=== PATIENT | male | born 1975 | race Native Hawaiian/Other Pacific Islander ===

== ENCOUNTER 2016-11-05 11:18 | Emergency (ER) | payer BC ==
[~2016-11-05] VITALS: Ht 182.9 cm; Wt 165.6 kg
[~2016-11-05 11:18] MED LIST: ASPIRIN81 M1 OR; BENA20TA2 PO; GLYB5TAB65 PO; LEXAPRO20 MG OR; LIPITOR40 MG PO; METF500T PO
[2016-11-05 14:21] VITALS: BP 154/88; TEMP 98.7
== END 2016-11-05 14:21 | disposition home or self-care (01) ==
LOC: ED 11:18
DX: S80.12XA Contusion of left lower leg, initial encounter (principal); W20.8XXA Other cause of strike by thrown, projected or falling object, initial encounter; Y92.098 Other place in other non-institutional residence as the place of occurrence of the external cause
CPT/HCPCS: 96372; 99283; J1885

== ENCOUNTER 2017-12-15 12:40 | Observation (INO) | payer BC ==
[~2017-12-15] VITALS: Ht 182.9 cm; Wt 156.5 kg
[2017-12-15 12:53] VITALS: BP 158/93; TEMP 97.9
[2017-12-15] MEDS ORDERED: ALLO100T22 PO (13:14)
[2017-12-15] MEDS ORDERED: VICTOZA18 MG/3 ML PO (13:14)
[2017-12-15 13:22] LABS: POTASSIUM 3.8 mmol/L (3.6-5.2)
[2017-12-15 13:24] LABS: PLATELET COUNT 288 K/uL (142-355)
[2017-12-15 16:13] VITALS: BP 125/75; TEMP 98.3; Ht 182.9 cm; Wt 156.5 kg
[2017-12-15 20:00] VITALS: BP 137/71; TEMP 98.3
[2017-12-16] VITALS: BP 150/98; TEMP 97.9
[2017-12-16 04:00] VITALS: BP 117/76; TEMP 97.7
[2017-12-16 08:00] VITALS: BP 130/80; TEMP 98
[2017-12-16 12:00] VITALS: BP 115/72; TEMP 97.9
== END 2017-12-16 14:00 | disposition home or self-care (01) ==
LOC: ED 12:40 → MED/SURG 14:00
DX: R07.89 Other chest pain (principal); I10 Essential (primary) hypertension; E78.4 Other hyperlipidemia; E11.9 Type 2 diabetes mellitus without complications; R55 Syncope and collapse; K21.9 Gastro-esophageal reflux disease without esophagitis
CPT/HCPCS: 36415; 80053; 82550; 82948; 84484; 85027; 85610; 85730; 86318; 93005; 96372; 99220; 99284; G0378; J1650

== ENCOUNTER 2018-01-25 08:56 | Observation (INO) | payer BC ==
[~2018-01-25] VITALS: Ht 182.9 cm; Wt 153.8 kg
[~2018-01-25 08:56] MED LIST changes: +ALLO100T22 PO; +VICTOZA18 MG/3 ML PO
[2018-01-25 09:31] VITALS: BP 132/85; TEMP 98; Ht 182.9 cm; Wt 153.8 kg
[2018-01-25 09:46] LABS: PLATELET COUNT 273 K/uL (142-355)
[2018-01-25 09:55] LABS: PARTIAL THROMBOPLASTIN TIME 26.1 SECONDS (24.5-33.6)
[2018-01-25 09:59] LABS: POTASSIUM 4.4 mmol/L (3.6-5.2); SODIUM 132 mmol/L (136-145)
[2018-01-25] MEDS ORDERED: CITALOPRAM40 MG PO (10:20)
[2018-01-25] MEDS ORDERED: LIPITOR40 MG PO (10:20)
[2018-01-25] MEDS ORDERED: SITA50TA2 PO (10:21)
[2018-01-25] MEDS ORDERED: ZANTAC 75 PO (10:21)
[2018-01-25] MEDS ORDERED: POTASSIUM99 MG PO (10:22)
[2018-01-25] MEDS ORDERED: IRON27 MG PO (10:22)
[2018-01-25 12:00] VITALS: BP 132/85; TEMP 98.3
[2018-01-25 16:00] VITALS: BP 134/80; TEMP 97.9
[2018-01-25 20:00] VITALS: BP 134/84; TEMP 98.3
[2018-01-26] VITALS: BP 102/58; TEMP 97.9
[2018-01-26 04:00] VITALS: BP 144/85; TEMP 98.1
[2018-01-26 06:29] LABS: PLATELET COUNT 180 K/uL (142-355)
[2018-01-26 06:51] LABS: POTASSIUM 3.2 mmol/L (3.6-5.2)
[2018-01-26 08:00] VITALS: BP 138/78; TEMP 97.7
[2018-01-26 12:00] VITALS: BP 116/63; TEMP 97.6
[2018-01-26 16:00] VITALS: BP 131/69; TEMP 97.9
[2018-01-26 20:00] VITALS: BP 140/76; TEMP 98.7
[2018-01-27] VITALS: BP 113/61; TEMP 98.3
[2018-01-27 04:00] VITALS: BP 131/71; TEMP 98.6
[2018-01-27 06:17] LABS: PLATELET COUNT 187 K/uL (142-355)
[2018-01-27 06:33] LABS: POTASSIUM 3.9 mmol/L (3.6-5.2)
[2018-01-27 08:00] VITALS: BP 137/76; TEMP 97.8
[2018-01-27 12:03] VITALS: BP 139/78; TEMP 98
[2018-01-27 16:00] VITALS: BP 111/65; TEMP 98
[2018-01-27 20:00] VITALS: BP 108/71; TEMP 98.7
[2018-01-28] VITALS: BP 108/69; TEMP 98.8
[2018-01-28 03:59] VITALS: BP 110/75; TEMP 98.9
[2018-01-28 06:57] LABS: PLATELET COUNT 102 K/uL (142-355)
[2018-01-28 08:22] VITALS: BP 118/69; TEMP 97.7
[2018-01-28 12:09] VITALS: BP 116/78; TEMP 98.1
== END 2018-01-28 15:10 | disposition home or self-care (01) ==
LOC: MED/SURG 08:56
PROVIDERS: ADMIT Family Medicine
DX: E11.65 Type 2 diabetes mellitus with hyperglycemia (principal); Z79.4 Long term (current) use of insulin; R06.02 Shortness of breath; R07.89 Other chest pain
CPT/HCPCS: 36591; 36600; 80053; 81000; 82550; 82805; 82948; 83036; 83735; 83880; 84484; 85027; 85610; 85730; 93005; 94760; 96372; 99220; G0378; G0379; J1650; J1815

== ENCOUNTER 2018-12-31 08:32 | Outpatient (CLI) | payer BC ==
[~2018-12-31 08:32] MED LIST changes: +CITALOPRAM40 MG PO; +IRON27 MG PO; +POTASSIUM99 MG PO; +SITA50TA2 PO; +ZANTAC 75 PO
== END 2018-12-31 22:45 | disposition home or self-care (01) ==
LOC: RAD 08:32
DX: R06.2 Wheezing (principal)

== ENCOUNTER 2020-01-27 08:14 | Outpatient (CLI) | payer BC ==
[2020-01-27 09:10] LABS: POTASSIUM 4.1 mmol/L (3.6-5.2)
[2020-01-27 10:00] LABS: PLATELET COUNT 257 K/uL (142-355)
== END 2020-01-27 19:13 | disposition home or self-care (01) ==
LOC: US 08:14
PROVIDERS: Internal Medicine
DX: I12.9 Hypertensive chronic kidney disease with stage 1 through stage 4 chronic kidney disease, or unspecified chronic kidney disease (principal); N18.3 Chronic kidney disease, stage 3 (moderate); E11.22 Type 2 diabetes mellitus with diabetic chronic kidney disease
CPT/HCPCS: 36415; 80053; 81000; 82024; 82088; 82306; 82330; 82533; 82570; 83036; 83735; 83835; 83970; 84100; 84155; 84244; 84436; 84443; 85027

== ENCOUNTER → 2020-04-21 | Outpatient (CLI) | payer BC ==
[2020-04-21 13:00] LABS: PLATELET COUNT 277 K/uL (142-355)
[2020-04-21 13:01] LABS: POTASSIUM 4.7 mmol/L (3.6-5.2)
== END ==
LOC: LABW 11:39
PROVIDERS: Internal Medicine
DX: E11.22 Type 2 diabetes mellitus with diabetic chronic kidney disease (principal); N18.30 Chronic kidney disease, stage 3 unspecified
CPT/HCPCS: 36415; 80053; 81000; 82306; 82330; 82570; 83036; 83735; 83970; 84100; 84155; 85027

== ENCOUNTER 2020-06-29 08:48 | Outpatient (CLI) | payer BC ==
[2020-06-29 09:39] LABS: POTASSIUM 5.7 mmol/L (3.6-5.2)
[2020-06-29 10:11] LABS: PLATELET COUNT 236 K/uL (142-355)
== END 2020-06-29 20:27 | disposition home or self-care (01) ==
LOC: LABW 08:48
PROVIDERS: ATTEND Nurse Practitioner
DX: E11.22 Type 2 diabetes mellitus with diabetic chronic kidney disease (principal); N18.30 Chronic kidney disease, stage 3 unspecified
CPT/HCPCS: 36415; 80053; 81000; 82306; 82330; 82570; 83036; 83735; 83970; 84100; 84155; 85027

== ENCOUNTER 2022-04-12 08:09 | Outpatient (CLI) | payer OTHER ==
[2022-04-12 08:20] LABS: PLATELET COUNT 450 K/uL (142-355)
[2022-04-12 09:15] LABS: POTASSIUM 5.8 mmol/L (3.6-5.2)
== END 2022-04-12 18:54 | disposition home or self-care (01) ==
LOC: LAB 08:09
PROVIDERS: ATTEND Nurse Practitioner Family
DX: N18.9 Chronic kidney disease, unspecified (principal); R25.2 Cramp and spasm; E87.5 Hyperkalemia
CPT/HCPCS: 80053; 83735; 85027

== ENCOUNTER 2022-05-15 15:11 | Inpatient (IN) | payer OTHER ==
[~2022-05-15] VITALS: Ht 182.9 cm; Wt 147.9 kg
[2022-05-15] VITALS (11 sets, daily range): BP systolic 93–177; BP diastolic 49–77; TEMP 98.6–99.3; Ht 182.9 cm; Wt 147.9 kg
[2022-05-15 15:32] LABS: PLATELET COUNT 233 K/uL (142-355)
[2022-05-16] VITALS (7 sets, daily range): BP systolic 98–160; BP diastolic 52–134; TEMP 98.6–103
[2022-05-16 05:36] LABS: POTASSIUM 4.5 mmol/L (3.6-5.2)
[2022-05-16 05:42] LABS: PLATELET COUNT 208 K/uL (142-355)
[2022-05-16] MEDS ORDERED: GABA300C2 PO (09:24)
[2022-05-16] MEDS ORDERED: TRICOR145 M1 PO (09:25)
[2022-05-16] MEDS ORDERED: RAYALDEE30 MCG PO (09:25)
[2022-05-16] MEDS ORDERED: TRESIBA FL100 UNIT/M SC (09:26)
[2022-05-16] MEDS ORDERED: LIPITOR80 MG PO (09:26)
[2022-05-16] MEDS ORDERED: GLIPIZIDE ER PO (09:27)
[2022-05-16] MEDS ORDERED: TESTOSTERON200 MG/ML IM (09:27)
[2022-05-17] VITALS (7 sets, daily range): BP systolic 93–130; BP diastolic 53–73; TEMP 97.8–100.3
[2022-05-17 08:17] LABS: PLATELET COUNT 219 K/uL (142-355)
[2022-05-17 08:30] LABS: POTASSIUM 4.3 mmol/L (3.6-5.2)
[2022-05-18] VITALS: BP 123/65; TEMP 98.2
[2022-05-18 04:00] VITALS: BP 97/72; TEMP 98.4
[2022-05-18 05:03] LABS: PLATELET COUNT 223 K/uL (142-355)
[2022-05-18 05:21] LABS: POTASSIUM 3.9 mmol/L (3.6-5.2)
[2022-05-18 08:00] VITALS: BP 103/47; TEMP 98.2
[2022-05-18] MEDS ORDERED: LEVO250T2 PO ×2 (08:32→09:28)
[2022-05-18] MEDS ORDERED: LEVE500T5 PO (08:35)
== END 2022-05-18 10:40 | disposition home or self-care (01) | DRG 690 ==
LOC: ED 15:11 → MED/SURG 19:05
PROVIDERS: ADMIT Emergency Medicine; ATTEND Internal Medicine
DX: N39.0 Urinary tract infection, site not specified (principal); E78.49 Other hyperlipidemia; E66.8 Other obesity; Z68.41 Body mass index [BMI] 40.0-44.9, adult; B96.1 Klebsiella pneumoniae [K. pneumoniae] as the cause of diseases classified elsewhere; I10 Essential (primary) hypertension; R56.9 Unspecified convulsions; G47.33 Obstructive sleep apnea (adult) (pediatric); N13.6 Pyonephrosis; I12.9 Hypertensive chronic kidney disease with stage 1 through stage 4 chronic kidney disease, or unspecified chronic kidney disease; E11.22 Type 2 diabetes mellitus with diabetic chronic kidney disease; N18.4 Chronic kidney disease, stage 4 (severe)
CPT/HCPCS: 36415; 80053; 81000; 82948; 83605; 85027; 87040; 87077; 87086; 87088; 87186; 87635; 93005; 96360; 96361; 96365; 96366; 96372; 96374; 99284; J0696; J1815; J2405; U0003